=== PATIENT | female | born 1980 | race Caucasian/White ===

== ENCOUNTER → 2024-10-08 | Outpatient (CLI) | payer OTHER ==
[~2024-10-08] MED LIST: CIPR500 PO; INSLI100I SS; INSN100I SC; LEVSOD125 PO; OXYACE5T PO; PROM25 PO
[2024-10-08 19:15] LABS: BASOPHILS ABSOLUTE AUTO 0.03 K/mm3 (0.00-0.23); BASOPHILS PERCENT AUTO 1 % (0-2); EOSINOPHILS ABSOLUTE AUTO 0.25 K/mm3 (0.00-0.68); EOSINOPHILS PERCENT AUTO 4 % (0-6); Hematocrit 37.2 % (33.0-51.0); Hemoglobin 12.8 g/dL (11.5-16.0); IMMATURE GRAN ABSOLUTE AUTO 0.01 K/mm3 (0.00-0.10); IMMATURE GRAN PERCENT AUTO 0 % (0-1); LYMPHOCYTES ABSOLUTE AUTO 2.43 K/mm3 (0.84-5.20); LYMPHOCYTES PERCENT AUTO 41 % (21-46); MONOCYTES ABSOLUTE AUTO 0.44 K/mm3 (0.16-1.47); MONOCYTES PERCENT AUTO 7 % (4-13); Mean Corpuscular HGB 32.9 pg (26.0-34.0); Mean Corpuscular HGB Conc 34.4 g/dL (31.5-36.5); Mean Corpuscular Volume 96 fL (80-100); Mean Platelet Volume 10.3 fL (9.1-12.4); NEUTROPHILS ABSOLUTE AUTO 2.81 K/mm3 (1.96-9.15); NEUTROPHILS PERCENT AUTO 47 % (41-73); Platelet Count 289 K/mm3 (150-400); RDW Coefficient Variation 11.9 % (11.7-14.2); RDW Standard Deviation 40.7 fL (35.1-46.3); Red Blood Cell Count 3.89 M/mm3 (3.80-5.20); White Blood Cell Count 5.97 K/mm3 (4.00-11.30)
[2024-10-08 19:46] LABS: Microalb/Creat Ratio UR, Rand 8.625 mg/g (0.000-30.000); Microalbumin, Random Urine 13.8 mg/L (0.000-20.000)
[2024-10-08 20:08] LABS: Albumin, Blood 3.4 g/dL (3.4-5.0); Albumin/Globulin Ratio 0.9 (0.8-1.8); Alk Phos 82 U/L (50-136); Anion Gap 9 mmol/L (3-11); Aspartate Aminotrans (AST/SGOT 51 U/L (12-37); Bilirubin, Direct <0.1 mg/dL (0.0-0.3); Bilirubin, Total 0.3 mg/dL (0.1-1.0); Blood Urea Nitrogen 14 mg/dL (8-24); Bun/Creatinine Ratio 13.3 (12.0-20.0); CHOL/HDL RATIO 2.4; CO2, Blood 29 mmol/L (21-32); Chloride, Blood 102 mmol/L (98-108); Cholesterol 229 mg/dL (50-200); Creatinine, Blood 1.05 mg/dL (0.40-1.00); Globulin, Blood 3.7 g/dL (2.2-4.0); Glomerular Filtration Rate 67 (60-); Glucose, Blood 269 mg/dL (70-99); HDL Cholesterol 94 mg/dL (>39); LDL/HDL RATIO 1.1; Low Density Lipoprotein Chol 99 mg/dL (0-110); Potassium, Blood 4.1 mmol/L (3.5-5.5); Sodium, Blood 136 mmol/L (136-145); Total Protein, Blood 7.1 g/dL (6.4-8.2); Triglycerides 178 mg/dL (30-160); Very Low Density Lipoprot Chol 35 mg/dL (6-32)
[2024-10-08 20:11] LABS: Bilirubin, Indirect Unable to Calculate mg/dL (0.1-0.7)
[2024-10-08 20:12] LABS: Alanine Aminotransfer (ALT/SGP 65 U/L (12-78)
== END | disposition home or self-care (01) ==
LOC: LAB SHORT 18:53 → LAB 18:53
PROVIDERS: Family Medicine
DX: E11.9 Type 2 diabetes mellitus without complications (principal)
CPT/HCPCS: 80053; 80061; 82043; 82248; 82570; 85025

== ENCOUNTER → 2024-10-12 | Outpatient (CLI) | payer OTHER ==
[2024-10-12 19:43] LABS: Bun/Creatinine Ratio 17.3 (12.0-20.0); Calcium, Blood 9.7 mg/dL (8.5-10.1); Creatinine, Blood 0.69 mg/dL (0.40-1.00); Follicle Stimulating Hormone 74.3 mIU/ml; Luteinizing Hormone 37.8 mIU/ml; Potassium, Blood 4.5 mmol/L (3.5-5.5); Thyroid Stimulating Hormone 9.59 uIU/mL (0.360-4.800)
== END ==
LOC: LAB SHORT 19:09 → LAB 19:09
PROVIDERS: Family Medicine
DX: E10.9 Type 1 diabetes mellitus without complications (principal); R79.89 Other specified abnormal findings of blood chemistry; N93.8 Other specified abnormal uterine and vaginal bleeding
CPT/HCPCS: 80048; 83001; 83002; 83036; 84443